=== PATIENT | female | born 1995 | race Hispanic/Latino ===

== ENCOUNTER 2021-10-24 13:51 | Emergency (ER) | payer OTHER, SELFPAY ==
--- OUTSIDE RECORDS SUMMARY | 2021-10-24 13:54 | XMS REPORT | Continuity of Care Document ---
:1995 Author Organization [facility] t Address [address] [place] [address] Care Team Providers Name Role Phone Santhosh MIN, Sancho Primary Care Physician Анна PARTIDA C Attending Clinician Payers Payer Name Policy Type Policy Number Effective Date Expiration Date S ource Problems Condition Condition Condition Status Onset Resolution Last Treating Co mments Source Name Details Category Date Date Treatment Clinician Date Abnormal Abnormal Disease Active Overview: Un kindra maternal maternal 2-15 Formattin ity of glucose glucose 00:00: g of this [place] tolerance, tolerance, 00 note Me dical antepartum antepartum might be Branch different from the original. Passed early 3hr gtt Vaginal Vaginal Disease Active Univers bleeding bleeding 2-14 ity of during during 00:00: [place] [address] [facility] Supervisio Supervisio Disease Active U nivers n of n of 2-14 it[place] of high[place]risk [place] [address] [facility] Multiparit Multiparit Disease Active U nivers y y 2-14 ity of 00:00: [place] 00 [facility] History of History of Disease Active Overview : Univers 2-14 Formattin ity of demise, demise, 00:00: g of this [place] not not 00 note Medical currently currently might be Br anch different from the original. At 24 weeks, 1st in 2013 Abnormal Abnormal Disease Active Unive rs thyroid thyroid 1-19 ity of function function 00:00: [place] test test 00 Medical [place] Need for Need for Disease Active Unive rs HPV HPV 1-14 ity of vacc[place] History of History of Disease Active U nivers anemia anemia 1-14 ity of 00:00: [place] 00 [facility] Er Obesity in Obesity in Disease Active U nivers 4-16 ity of 00:00: [place] [facility] Branch Acanthosis Acanthosis Disease Active U nivers nigricans nigricans 4-16 ity of 00:00: [address] Allergies, Adverse Reactions, Alerts This patient has no known allergies or adverse reactions. Social History Social Habit Start Date Stop Date Quantity Comments Source ASSERTION 2021-09-09 University of 00:00:00 [facility] History of Smoker University of tobacco use [facility] Exposure to Not sure University of SARS-CoV-2 [facility] (event) [place] Alcohol intake 2021-10-14 2021-10-14 Ex-drinker University 00:00:00 00:00:00 (finding) [place] [facility] [place] History SDOH 2020-09-12 2020-09-12 99 University o f Alcohol Frequency 00:00:00 00:00:00 [place] [facility] edical Branch History SDOH 2020-09-12 2020-09-12 99 University o f Alcohol Std 00:00:00 00:00:00 [place] [facility] Dr[facility] Branch History SDOH 2020-09-12 2020-09-12 99 University o f Alcohol Binge 00:00:00 00:00:00 [place] [facility] Tobacco use and 2020-09-12 2020-09-12 Never used Universit y of exposure 00:00:00 00:00:00 [facility] Alcohol Comment 2020-09-12 2020-09-12 rarely Universit y of 00:00:00 00:00:00 [facility] Sex [birth year] Universit y of 00:00:00 00:00:00 [facility] Smoking Status Start Date Stop Date Source Former smoker 2020-09-12 00:00:00 2020-09-12 00:00:00 Universi ty of [facility] Medications Ordered Filled Start Stop Current Ordering Indication Dosage Frequency Signature Comments Components Source Medication Medication Date Date Medication? Clinician (SIG) Name Name No known No Univers medications 2-14 ity of 13:59: [address] Immunizations Ordered Filled Immunization Date Status Comments Sourc e Immunization Name Name HPV9 2020-10-23 Completed University 00:00:00 [facility] Influenza Virus 2020-09-12 Completed [facility] y of Vaccine Quad .5 mL 00:00:00 [facility] IM 6+ MO Branch HPV9 2020-09-12 Completed University 00:00:00 [facility] Varicella 2014-03-13 Completed [facility] (varivax)(chicken 00:00:00 [facility] edical pox) Branch Varicella 2013-12-16 Completed [facility] (varivax)(chicken 00:00:00 [facility] edical pox) Branch TDAP 2012-04-14 Completed [facility] 00:00:00 [facility] Procedures This patient has no known procedures. Encounters Start End Encounter Admission Attending Care Care Encounter Source Date/Time Date/Time Type Type Clinicians Facility Department ID 2021-10-21 2021-10-[address] [facility] [id number] Univers 00:00:00 00:00:00 Jessica Bustos STUDENT SERVICES COORDINATOR [id number] [facility] [id number] Kal[place] as MATERNAL [id number] Med ical & CHILD 107 [facility] Results This patient has no known results.
[2021-10-24 14:14] LABS: Urine Blood 3+ (Negative); Urine Glucose Negative (Negative); Urine Protein Negative (Negative); Urine Specific Gravity >=1.030 (1.005-1.030)
[2021-10-24 14:39] LABS: Absolute Lymphocytes (CBC) 2.1 K/uL (0.7-4.9); Hematocrit 40.6 % (36.0-45.0); MPV 9.9 fL (7.6-11.3); RBC Red Blood Cell Count 5.03 M/uL (3.86-4.86)
[2021-10-24 14:56] LABS: BUN Blood Urea Nitrogen 8 mg/dL (7-18); Bicarbonate 25 mmol/L (21-32); Glucose Level 101 mg/dL (74-106); Potassium 3.5 mmol/L (3.5-5.1); Sodium Level 136 mmol/L (136-145)
[2021-10-24 15:15] LABS: HCG, Quantitative 15117 mIU/mL (1-3)
--- NOTE | 2021-10-24 16:03 | RAD REPORT ---
EXAM DESCRIPTION: US - Transvaginal OB - 10/24/2021 3:35 pm CLINICAL HISTORY: Abd cramping, ;Vaginal bleeding COMPARISON: No comparisons FINDINGS: Gestational sac identified. A yolk sac is seen which measures 8 millimeters which is enlar ged appear the mean sac diameter is 1.6 cm which is consistent with 6 weeks 3 day. The right ovary zeng s a volume of 4.1 cc. The left ovary is volume of 5.3 cc. Vascular flow is present bilaterally. IMPRESSION: Gestational sac identified measuring 6 weeks 3 day. Abnormally enlarged yolk sac which c ould indicate the patient has increased risk of failed first trimester . In addition, no fet al pole identified. Suggest short-term follow-up ultrasound for further evaluation.
--- NOTE | 2021-10-24 16:22 | EDPHYS ---
Physician Documentation [facility] Name: Jessica Saucedo Age: 25 yrs Sex: Female : 1995 Arrival Date: 10/24/2021 Time: 13:53 Bed 23 Private MD: ED Physician Rafa Lou HPI: 10/24 15:20 This 25 yrs old Female presents to ER via Ambulatory with complaints of jr8 Vaginal Bleeding, + Preg <12wks. 15:20 The patient presents to the emergency department with vaginal bleeding, that is jr8 moderate, with clots. Associated signs and symptoms: Pertinent positives: abdominal pain. The patient has experienced a previous episode. The patient has not recently seen a physician. Patient stated that she is around 8/9 weeks gestation. Stated that she had abrupt on set vaginal bleeding and cramping today. Denies any precipitating event prior to this and has been feeling well. No official confirmatory US done yet. Has been waiting on Medicaid to go through . 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 - Social history:: Smoking status: Patient/guardian denies using tobacco, the patient reports quitting approximately 2 years ago. ROS: 15:20 Eyes: Negative for injury, pain, redness, and discharge, ENT: Negative for injury, jr8 pain, and discharge, Neck: Negative for injury, pain, and swelling, Cardiovascular: Negative for chest pain, palpitations, and edema, Respiratory: Negative for shortness of breath, cough, wheezing, and pleuritic chest pain, Abdomen/GI: Negative for abdominal pain, nausea, vomiting, diarrhea, and constipation, Back: Negative for injury and pain, MS/Extremity: Negative for injury and deformity, Skin: Negative for injury, rash, and discoloration, Neuro: Negative for headache, weakness, numbness, tingling, and seizure. 15:20 : Positive for pelvic pain, vaginal bleeding. Exam: 15:20 Constitutional: This is a well developed, well nourished patient who is awake, alert, jr8 and in no acute distress. Cardiovascular: Regular rate and rhythm with a normal S1 and S2. No gallops, murmurs, or rubs. Normal PMI, no JVD. No pulse deficits. Respiratory: Lungs have equal breath sounds bilaterally, clear to auscultation and percussion. No rales, rhonchi or wheezes noted. No increased work of breathing, no retractions or nasal flaring. Abdomen/GI: Soft, non-tender, with normal bowel sounds. No distension or tympany. No guarding or rebound. No evidence of tenderness throughout. Back: No spinal tenderness. No costovertebral tenderness. Full range of motion. Skin: Warm, dry with normal turgor. Normal color with no rashes, no lesions, and no evidence of cellulitis. MS/ Extremity: Pulses equal, no cyanosis. Neurovascular intact. Full, normal range of motion. Neuro: Awake and alert, GCS 15, oriented to person, place, time, and situation. Cranial nerves II-XII grossly intact. Motor strength 5/5 in all extremities. Sensory grossly intact. Vital Signs: 13:54 BP 141 / 95; Pulse 72; Resp 16; Temp 97.7(TE); Pulse Ox 98% on R/A; Weight 144.24 kg; jl7 Height 5 ft. 2 in. (157.48 cm); Pain 5/10; 16:09 BP 116 / 66; Pulse 70; Resp 20; Pulse Ox 99% on R/A; lr4 13:54 Body Mass Index 58.16 (144.24 kg, 157.48 cm) jl7 MDM: 14:04 Patient medically screened. jr8 16:18 Data reviewed: vital signs, nurses notes, lab test result(s), radiologic studies, jr8 ultrasound. Data interpreted: Pulse oximetry: on room air is 99 %. Interpretation: normal. Counseling: I had a detailed discussion with the patient and/or guardian regarding: the historical points, exam findings, and any diagnostic results supporting the discharge/admit diagnosis, lab results, radiology results, the need for outpatient follow up, an OB/Gyne specialist, to return to the emergency department if symptoms worsen or persist or if there are any questions or concerns that arise at home. ED course: Discussed with patient that based on US and exam it is concerning that she is having a failed 1st trimester . Patient needs short term interval redraw on HCG and another US done on Wednesday here since she does not have established care yet. If worse in the mean time to come back for reevaluation. Patient good with this plan . 10/24 14:03 Order name: Abo/rh Typing; Complete Time: 15:11 [facility] 10/24 14:03 Order name: Basic Metabolic Panel; Complete Time: 15:19 [facility] 10/24 14:03 Order name: CBC with Diff; Complete Time: 14:41 10/24 14:03 Order name: Quantitative Hcg; Complete Time: 15: 10/24 14:13 Order name: Urine Dipstick-Ancillary; Complete Time: 14:22 EDMS 10/24 14:17 Order name: Urine --Ancillary (enter results); Complete Time: 15: eb 10/24 14:03 Order name: IV Saline Lock; Complete Time: 14:23 [facility] 10/24 14:03 Order name: Labs collected and sent; Complete Time: 14:23 10/24 14:03 Order name: NPO; Complete Time: 14:23 10/24 14:03 Order name: Urine Dipstick-Ancillary (obtain specimen); Complete Time: 14: 10/24 14:03 Order name: Urine Test (obtain specimen); Complete Time: 14: 10/24 14:14 Order name: US Transvaginal Ob; Complete Time: 16:04 jr8 Administered Medications: No medications were administered Point of Care Testing: Urine : 14:31 hCG Reading: Positive; Control Reading: Positive; lr4 Disposition Summary: 10/24/21 16:21 Discharge Ordered Location: Home jr8 Problem: new jr8 Symptoms: are unchanged jr8 Condition: Stable jr8 Diagnosis - Threatened jr8 Followup: jr8 - With: Emergency Department - When: 10/27/2021 - Reason: Discharge Instructions: - Discharge Summary Sheet jr8 - Threatened Miscarriage jr8 - Vaginal Bleeding During , First Trimester jr8 Forms: - Medication Reconciliation Form jr8 - Thank You Letter jr8 - Antibiotic Education jr8 - Prescription Opioid Use jr8 Signatures: Dispatcher [employer] EDMS Yosef Tatum PA PA jr8 Facundo Hagen RN RN jl7 Corrections: (The following items were deleted from the chart) 14:29 14:14 Transvaginal Ob+US.RAD.BRZ ordered. EDMS EDMS
--- NOTE | 2021-10-24 16:22 | ER ---
Nurse's Notes [facility] Name: Jessica Saucedo Age: 25 yrs Sex: Female : 1995 Arrival Date: 10/24/2021 Time: 13:53 Bed 23 Private MD: Diagnosis: Threatened Presentation: 10/24 13:54 Chief complaint: Patient states: "I am 8 weeks and I have had vaginal bleeding jl7 and cramping that began last night. I wanted to come get everything checked out.". Coronavirus screen: Vaccine status: Patient reports being unvaccinated. Client denies travel out of the [place] in the last 14 days. At this time, the client does not indicate any symptoms associated with coronavirus-19. Ebola Screen: Patient negative for fever greater than or equal to 101.5 degrees Fahrenheit, and additional compatible Ebola Virus Disease symptoms Patient denies exposure to infectious person. Patient denies travel to an Ebola-affected area in the 21 days before illness onset. No symptoms or risks identified at this time. Initial Sepsis Screen: Does the patient meet any 2 criteria? No. Patient's initial sepsis screen is negative. Does the patient have a suspected source of infection? No. Patient's initial sepsis screen is negative. Risk Assessment: Do you want to hurt yourself or someone else? Patient reports no desire to harm self or others. Onset of symptoms is unknown. 13:54 Method Of Arrival: Ambulatory 7 13:54 Acuity: JESSIE 3 jl7 Triage Assessment: 13:59 General: Appears in no apparent distress. comfortable, Behavior is calm, cooperative, jl7 appropriate for age. Pain: Complains of pain in suprapubic area, right lower quadrant and left lower quadrant Pain currently is 5 out of 10 on a pain scale. Quality of pain is described as aching, crampy. : Reports vaginal bleeding that is bright red, light flow. 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 - Social history:: Smoking status: Patient/guardian denies using tobacco, the patient reports quitting approximately 2 years ago. Screenin:59 Abuse screen: Denies threats or abuse. Denies injuries from another. Nutritional jl7 screening: No deficits noted. Tuberculosis screening: No symptoms or risk factors identified. Fall Risk None identified. Assessment: 14:28 Obstetrical Assessment: General assessment: awake and alert, skin warm and dry, Patient lr4 reports abdominal cramping, vaginal bleeding at 8 wks . General: Appears in no apparent distress. comfortable, obese, well groomed, Behavior is calm, cooperative. Pain: Complains of pain in abdomen Pain currently is 5 out of 10 on a pain scale. Neuro: No deficits noted. Cardiovascular: No deficits noted. Respiratory: No deficits noted. GI: Reports lower abdominal pain, cramping, Patient currently denies nausea, vomiting. 16:11 Reassessment: No changes from previously documented assessment. lr4 Vital Signs: 13:54 BP 141 / 95; Pulse 72; Resp 16; Temp 97.7(TE); Pulse Ox 98% on R/A; Weight 144.24 kg; jl7 Height 5 ft. 2 in. (157.48 cm); Pain 5/10; 16:09 BP 116 / 66; Pulse 70; Resp 20; Pulse Ox 99% on R/A; lr4 13:54 Body Mass Index 58.16 (144.24 kg, 157.48 cm) jl7 Vitals: 14:30 Heart Tones too early to obtain/pt has US ordered. lr4 ED Course: 13:53 Patient arrived in ED. ds1 13:58 Triage completed. jl7 14:00 Arm band placed on right wrist. jl7 14:03 Yosef Tatum PA is PHCP. jr8 14:03 Rafa Lou MD is Attending Physician. jr8 14:07 Sherry Pham RN is Primary Nurse. lr4 14:24 Abo/rh Typing Sent. lr4 14:24 Basic Metabolic Panel Sent. lr4 14:24 CBC with Diff Sent. lr4 14:24 Quantitative Hcg Sent. lr4 14:28 Urine --Ancillary (enter results) Sent. lr4 14:30 No provider procedures requiring assistance completed. lr4 14:31 Patient has correct armband on for positive identification. Call light in reach. Side lr4 rails up X 1. Adult w/ patient. Placed in gown. Bed in low position. 15:35 US Transvaginal Ob In Process Unspecified. EDMS 16:55 IV discontinued. lr4 Administered Medications: No medications were administered Point of Care Testing: Urine : 14:31 hCG Reading: Positive; Control Reading: Positive; lr4 Outcome: 16:09 Condition: stable lr4 16:21 Discharge ordered by . jrJanet 16:54 Patient left the ED. lr4 16:55 Discharged to home ambulatory, with family. lr4 16:55 Discharge instructions given to patient. lr4 Signatures: Dispatcher [employer] [facility] OrtizSwati ds1 Yosef Tatum PA PA jr8 Leal, Jahala RN RN jl7 Sherry Pham RN RN lr4
[2021-10-24 17:42] VITALS: TEMP 97.7
[2021-10-24 17:43] VITALS: BP 116/66; O2SAT 99
== END 2021-10-24 16:54 | disposition home or self-care (01) ==
LOC: ER 13:51
DX: O20.0 Threatened abortion (principal)
CPT/HCPCS: 36415; 76817; 80048; 81003; 81025; 84702; 85025; 86900; 86901; 99284

== ENCOUNTER 2021-10-27 13:59 | Emergency (ER) | payer OTHER, SELFPAY ==
--- NOTE | 2021-10-27 16:13 | ER ---
Nurse's Notes [facility] Name: Jessica Saucedo Age: 25 yrs Sex: Female : 1995 Arrival Date: 10/27/2021 Time: 14:03 Bed 15 Private MD: Diagnosis: Threatened Presentation: 10/27 14:12 Chief complaint: Patient states: Pt was seen on Wednesday for vag bleeding and abd pain. [facility] Pt is aprox 6-8wks preg. Pt was told to come back today for repeat blood work. Pt states that this am she had 4 large clots and increased abd pain but has decreased. Coronavirus screen: Vaccine status: Patient reports being unvaccinated. Client denies travel out of the [place] in the last 14 days. At this time, the client does not indicate any symptoms associated with coronavirus-19. Ebola Screen: Patient denies exposure to infectious person. Patient denies travel to an Ebola-affected area in the 21 days before illness onset. Initial Sepsis Screen: Does the patient meet any 2 criteria? No. Patient's initial sepsis screen is negative. Does the patient have a suspected source of infection? No. Patient's initial sepsis screen is negative. Risk Assessment: Do you want to hurt yourself or someone else? Patient reports no desire to harm self or others. Onset of symptoms was October 23, 2021. 14:12 Method Of Arrival: Ambulatory [facility] 14:12 Acuity: JESSIE 3 [facility] Triage Assessment: 14:15 General: Appears in no apparent distress. obese, Behavior is calm, cooperative. Pain: [facility] Complains of pain in suprapubic area Pain currently is 2 out of 10 on a pain scale. Quality of pain is described as crampy. 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 - Social history:: Smoking status: Patient denies any tobacco usage or history of. Screenin:16 Abuse screen: Denies threats or abuse. Nutritional screening: No deficits noted. [facility] Tuberculosis screening: No symptoms or risk factors identified. Fall Risk None identified. Assessment: 15:56 General: Appears in no apparent distress. Behavior is calm, cooperative, appropriate ph for age. Pain: Complains of pain in suprapubic area. Neuro: Level of Consciousness is awake, alert, obeys commands, Oriented to person, place, time, situation. Cardiovascular: Capillary refill < 3 seconds in bilateral fingers Patient's skin is warm and dry. Respiratory: Airway is patent Respiratory effort is even, unlabored, Respiratory pattern is regular, symmetrical. : Reports cramping, vaginal bleeding that is with clots, since Wednesday. Derm: Skin is intact, Skin is pink, warm \T\ dry. Vital Signs: 14:12 BP 140 / 91; Pulse 76; Resp 18; Temp 98.0(TE); Pulse Ox 99% ; Weight 144.24 kg; Height [facility] 5 ft. 2 in. (157.48 cm); Pain 2/10; 15:57 BP 131 / 87; Pulse 71; Resp 18; Pulse Ox 98% on R/A; ph 14:12 Body Mass Index 58.16 (144.24 kg, 157.48 cm) [facility] ED Course: 14:03 Patient arrived in ED. as 14:15 Triage completed. [facility] 14:15 Arm band placed on left wrist. [facility] 14:16 [facility]ee Lal [facility] 14:16 Buddy Hawthorne MD is Attending Physician. [facility] 14:16 Bed in low position. Call light in reach. Side rails up X 1. Adult w/ patient. [facility] 15:54 Kristina Briones, RN is Primary Nurse. ph 15:56 No provider procedures requiring assistance completed. ph 16:47 Patient did not have IV access during this emergency room visit. ld1 Administered Medications: No medications were administered Outcome: 16:13 Discharge ordered by . [facility] 16:47 Discharged to home ambulatory, with family. ld1 16:47 Condition: stable 16:47 Discharge instructions given to patient, Instructed on discharge instructions, follow up and referral plans. Demonstrated understanding of instructions, follow-up care. 16:47 Patient left the ED. ld1 Signatures: Tee Lal PA PA jmm Martinez, Amelia as Hall, Patricia, RN RN Lucia Casanova RN RN 1 Violeta Toro RN RN [facility]
--- NOTE | 2021-10-27 16:13 | EDPHYS ---
Physician Documentation [facility] Name: Jessica Saucedo Age: 25 yrs Sex: Female : 1995 Arrival Date: 10/27/2021 Time: 14:03 Bed 15 Private MD: ED Physician Buddy Hawthorne HPI: 10/27 14:30 This 25 yrs old Female presents to ER via Ambulatory with complaints of repeat jmm hcg/ultrasound. 14:30 The patient presents with vaginal bleeding that is. Onset: The symptoms/episode jmm began/occurred 3 day(s) ago. Modifying factors: The symptoms are alleviated by nothing, the symptoms are aggravated by nothing. Associated signs and symptoms: Pertinent negatives: vaginal discharge, vomiting. This is a 25-year-old female with history of anemia the presents emerged department with complaints of ongoing vaginal bleeding. Symptoms began approximately 3 days ago. Patient was evaluated in the ED. Advised to follow-up in 2 to 3 days for repeat quant hCG. Patient states she has continued bleeding but denies any weakness, shortness of breath. CLINICAL TRIALS NURSE: 14:16 1, LMP 08/26/2021 [facility] Historical: - PMHx: 14:15 Anemia; [facility] - Immunization history:: Adult Immunizations up to date, Client reports having NOT received the Covid vaccine. - Social history:: Smoking status: Patient denies any tobacco usage or history of. ROS: 14:30 Constitutional: Negative for fever, chills, and weight loss, Cardiovascular: Negative jmm for chest pain, palpitations, and edema, Respiratory: Negative for shortness of breath, cough, wheezing, and pleuritic chest pain, Abdomen/GI: Negative for abdominal pain, nausea, vomiting, diarrhea, and constipation. 14:30 : Positive for vaginal bleeding. 14:30 All other systems are negative. Exam: 14:30 Constitutional: This is a well developed, well nourished patient who is awake, alert, jmm and in no acute distress. Head/Face: atraumatic. Eyes: EOMI, no conjunctival erythema appreciated ENT: Moist Mucus Membranes Neck: Trachea midline, Supple Chest/axilla: Normal chest wall appearance and motion. Cardiovascular: Regular rate and rhythm. No edema appreciated Respiratory: Normal respirations, no respiratory distress appreciated Abdomen/GI: Non distended, soft Back: Normal ROM Skin: General appearance color normal MS/ Extremity: Moves all extremities, no obvious deformities appreciated, no edema noted to the lower extremities Neuro: Awake and alert Psych: Behavior is normal, Mood is normal, Patient is cooperative and pleasant Vital Signs: 14:12 BP 140 / 91; Pulse 76; Resp 18; Temp 98.0(TE); Pulse Ox 99% ; Weight 144.24 kg; Height jh6 5 ft. 2 in. (157.48 cm); Pain 2/10; 15:57 BP 131 / 87; Pulse 71; Resp 18; Pulse Ox 98% on R/A; ph 14:12 Body Mass Index 58.16 (144.24 kg, 157.48 cm) jh6 MDM: 14:30 Patient medically screened. [facility] 16:12 Data reviewed: vital signs, nurses notes. Counseling: I had a detailed discussion with odilon the patient and/or guardian regarding: the historical points, exam findings, and any diagnostic results supporting the discharge/admit diagnosis, the need for outpatient follow up, to return to the emergency department if symptoms worsen or persist or if there are any questions or concerns that arise at home. ED course: Patient is alert nontoxic in appearance in the ED. Vital signs are within normal lungs. Patient will follow up with CLINICAL TRIALS NURSE on Wednesday. Patient otherwise given strict return precautions. Patient understood agrees plan of care.. 10/27 14:35 Order name: HCG-Quantitative [id number] 10/27 14:35 Order name: HCG, Quantitative; Complete Time: 15:24 EDMS Administered Medications: No medications were administered Disposition Summary: 10/27/21 16:13 Discharge Ordered Location: Home [facility] Condition: Stable [facility] Diagnosis - Threatened [facility] Followup: [facility] - With: Private Physician - When: 1 - 2 days - Reason: Recheck today's complaints, Continuance of care, Re-evaluation by your physician Discharge Instructions: - Discharge Summary Sheet [facility] - Threatened Miscarriage [facility] Forms: - Medication Reconciliation Form [facility] - Thank You Letter jessie - Antibiotic Education [facility] - Prescription Opioid Use [facility] Addendum: 10/30/2021 09:19 Co-signature as Attending Physician, Buddy Hawthorne MD I agree with the assessment and c zeng plan of care. Signatures: Dispatcher [employer] EDMS Christoph, Buddy, Tee Urbina MD, cha, PA PA jmm Hastedt, Jennifer, RN RN jh6
[2021-10-27 17:14] VITALS: TEMP 98
[2021-10-27 17:15] VITALS: BP 131/87; O2SAT 98
== END 2021-10-27 16:47 | disposition home or self-care (01) ==
LOC: ER 13:59
DX: O20.0 Threatened abortion (principal); Z3A.01 Less than 8 weeks gestation of pregnancy
CPT/HCPCS: 36415; 84702; 99281